=== PATIENT | male | born 1985 ===

== ENCOUNTER 2020-03-18 19:32 | Emergency (ER) | payer OTHER ==
[~2020-03-18] VITALS: Ht 172.7 cm; Wt 86.2 kg
--- NOTE | 2020-03-18 19:42 | NUR ---
Dr. Bullock examined the patient and removed 1 staple on left thumb. Patient discharged to home in stable condition. Written and verbal after care instructions given. Patient verbalizes understanding of instructions. Stressed follow up or return to ER for worsening s/s.
[2020-03-18 19:43] VITALS: BP 118/72
== END 2020-03-18 19:44 | disposition home or self-care (01) ==
LOC: ER 19:35
DX: S61.012D Laceration without foreign body of left thumb without damage to nail, subsequent encounter (principal); X58.XXXD Exposure to other specified factors, subsequent encounter
CPT/HCPCS: A4663